=== PATIENT | male | born 1955 | race African-American/Black ===

== ENCOUNTER 2018-05-16 15:56 | Inpatient (IN) | payer OTHER ==
[~2018-05-16] VITALS: Ht 175.3 cm; Wt 80.7 kg
--- NOTE | ~2018-05-16 | HC ---
[facility] [address] [place] [address] CONSULTATION Name: OMAR INMAN Room #: [facility]- ADM IN M.R.#: [id number] Admission: 05/16/18 Attend Phys: Mark Hamilton MD Discharge: Date of : 55 Report #: [id number] THIS REPORT FOR: //name// CC: [employer] physician/PCP Mark Hamilton REASON FOR CONSULTATION: Chest pain. HISTORY OF PRESENT ILLNESS: The patient is a 62-year-old gentleman with history of dyslipidemia and hypertension. Around 3:30 today experienced midsternal chest and infrascapular pain, presented to the Emergency Department where an EKG at 1605 demonstrated inferior and lateral injury pattern. I was asked to see him in this regard. He has ongoing pain and mild diaphoresis. He denies prior cardiac history. He denies heart failure symptoms including orthopnea, paroxysmal nocturnal dyspnea, or lower extremity edema. No history of palpitations, near syncope, or syncope. ALLERGIES: He is allergic to STATINS which caused rhabdomyolysis and IODINATED CONTRAST which caused rash. MEDICATIONS: Home medicines include nifedipine, tamsulosin, niacin, omeprazole, methadone and allopurinol. PAST MEDICAL HISTORY: Medical records have been reviewed and include history of hypertension, osteoarthritis. 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 FAMILY HISTORY: Unremarkable for premature coronary disease. REVIEW OF SYSTEMS: All systems negative except as that noted above. PHYSICAL EXAMINATION: GENERAL: A pleasant gentleman in moderate distress. VITAL SIGNS: Blood pressure is 128/58, heart rate is 60 and regular. He is afebrile. HEENT: There are neither xanthelasma, subcutaneous xanthomata, oral mucosal or digital cyanosis or kyphoscoliosis present. CHEST: Clear to auscultation and percussion. CARDIAC: Regular rate and rhythm with normal S1 and distant heart sounds. ABDOMEN: Soft and nontender. EXTREMITIES: Without cyanosis, clubbing or edema. Radial pulses are 2+. NEUROLOGIC: He is alert with a nonfocal exam. LABORATORY DATA: EKG sinus rhythm with inferior posterior lateral injury pattern. Blood work remains pending. White count 11.3, hemoglobin 14, hematocrit 44, platelet count 239. Chest x-ray remains pending. [facility] [address] [place] [address] CONSULTATION Name: OMAR INMAN Room #: [facility]- ADM IN .Rosalie.#: [id number] Admission: 05/16/18 Attend Phys: Mark Hamilton MD Discharge: Date of : 55 Report #: [id number] IMPRESSION: 1. Acute inferolateral myocardial infarction. 2. Hypertension. 3. Dyslipidemia. 4. History of intolerance to statins. 5. IODINATED CONTRAST allergy. RECOMMENDATIONS: 1. Premedication for IODINE allergy. 2. Urgent coronary angiography. The angiographic procedure was discussed in detail. Potential risks and benefits discussed as well as the risks associated with probable percutaneous intervention. After a thorough discussion of the procedure, its risks and alternatives and after answering his questions, he is agreeable to proceeding. By: 1646 [id number] Constantine Quan MD, [facility] /nt
--- NOTE | ~2018-05-16 | EKG ---
[address] [address] ELECTROCARDIOGRAM REPORT Name: OMAR INMAN Room #: 212-P ADM IN M.R.#: [id number] Admission: 05/16/18 Attend Phys: Mark Hamilton MD Discharge: Date of : 55 Report #: [id number] THIS REPORT FOR: //name// [facility] ED Test Date: 2018-05-16 Test Time: 16:05:11 Pat Name: OMAR INMAN Department: Room: [facility] Gender: M Hospitality Associate: [facility] : 1955 Requested By: Diomedes Esqueda Order Number: [id number] MD: Philippe Vasquez Measurements Intervals [place] Rate: 61 P: -41 VT: 111 QRS: 71 QRSD: 89 T: 87 QT: 471 QTc: 475 Interpretive Statements Sinus rhythm Borderline short VT interval Inferoposterior infarct, acute (LCx) Lateral infarct, acute ST depression V1-V3, suggest recording posterior leads No previous ECG available for comparison Electronically Signed On 05-16-2018 20:53:49 PSYCHOLOGY PHYSICIAN by Philippe Vasquez [email or web address] <ELECTRONICALLY SIGNED> By: Philippe Vasquez MD 05/16/183 1605 Philippe Vasquez MD /EPI
--- NOTE | ~2018-05-16 | EKG ---
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1955 Requested By: Constantine Quan Order Number: [id number] MD: Constantine Quan Measurements Intervals [place] Rate: 59 P: 69 TN: 113 QRS: -35 QRSD: 102 T: -57 QT: 489 QTc: 485 Interpretive Statements Sinus rhythm Inferoposterior infarct, age indeterminate Lateral leads are also involved Baseline wander in lead(s) V2 Compared to ECG 05/17/2018 07:33:35 No significant changes Electronically Signed On 05-18-2018 9:24:06 EXPERT MEDICAL WRITER by Constantine Quan [email or web address] <ELECTRONICALLY SIGNED> By: Constantine Quan MD, [facility] 05/18/18 0924 0734 0734 Constantine Quan MD, [facility] /EPI
--- NOTE | ~2018-05-16 | EKG ---
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[employer] : 1955 Requested By: Constantine Quan Order Number: [id number] MD: Constantine Quan Measurements Intervals [place] Rate: 65 P: 73 SC: 118 QRS: -40 QRSD: 90 T: 82 QT: 478 QTc: 498 Interpretive Statements Sinus rhythm Borderline short SC interval Inferoposterior infarct, age indeterminate Compared to ECG 05/16/2018 18:27:07 No significant changes Electronically Signed On 05-17-2018 8:28:02 PAINTER AND DECORATOR APPRENTICE by Constantine Quan [email or web address] <ELECTRONICALLY SIGNED> By: Constantine Quan MD, [facility] 05/17/18 0828 Constantine Quan MD, [facility] /EPI
--- NOTE | ~2018-05-16 | CATHLAB ---
[facility] [address] [place] [address] INVASIVE PROCEDURE REPORT Name: OMAR INMAN Room #: 212-P ADM IN M.R.#: [id number] Admission: 05/16/18 Attend Phys: Mark Hamilton MD Discharge: Date of : 55 Date of Service: 05/16/18 1829 Report #: [id number] THIS REPORT FOR: //name// APPROVED REPORT Study performed: 05/16/2018 16:45:44 Patient Details Patient Status: ED Room #: The patient is a 62 year-old male Event Personnel Constantine Quan Spline Rolling Machine Job Setter, Champ Hurtado RN, Simon Linares RN RN, Jojo Ortiz, Alphonso Koo Monitor Procedures Performed Left Heart Cath w/or w/o Coronaries [id number] [facility] Revasc AMI Total/Sub Single CIRC C9606 AMIREVSING Indication STEMI (>0 to less than or equal to 6 hours), Chest pain Risk Factors Arterial Hypertension, Hypercholesterolemia Admission/Lab Medications/Medications given during procedure Aspirin, Glycoprotein IllbIlla Inhibitors, ACEI/ARB, Heparin Low Molecular Weight, Beta Onesimo Procedure Narrative The Right Groin^ was infiltrated with 1% Lidocaine subcutaneous anesthesia. A PINNACLE 6FR Sheath #[id number] sheath was inserted into the RFA^. Coronary angiography was performed using coronary diagnostic catheters. The right coronary system was accessed and visualized with a JR4 catheter. The left coronary system was accessed and visualized with a JL4 catheter. The left ventricle was accessed and visualized with a PIGTAIL catheter. Left ventricular/Aortic Valve gradient assessed via catheter pullback. Left ventriculogram was performed in 30 degree projection. Closure device was deployed with a 6 Fr MYNXGRIP 6/7F #[id number]. There was no hematoma. Intraoperative Conscious Sedation Sedation start time: 16.53 Case end Time: 17.39 [facility] [place] [address] INVASIVE PROCEDURE REPORT Name: OMAR INMAN Room #: 212-P [facility] IN .R.#: [id number] Admission: 05/16/18 Attend Phys: Mark Hamilton MD Discharge: Date of : 55 Date of Service: 05/16/18 1829 Report #: [id number] Fluoro Time: 12.46 minutes Dose: DAP 06166 cGycm2 1427 mGy Contrast Type and Amount: Visipaque 300 ml Coronary Angiography The patient's coronary anatomy is left dominant. Diagnostic Cath Left Main Left main was large and normal LAD The left anterior descending exhibited mild 20-30% proximal and mid vessel plaquing. Diagonal 1 The first diagonal branch was angiographically normal Diagonal 2 The second diagonal branch exhibited 20-30% proximal plaquing. Circumflex The circumflex was occluded proximally. This was the dominant vessel. Right Coronary The right coronary was moderate in size and nondominant R PDA The posterior descending branch was occluded proximally. There was fairly extensive jqnr-zn-egxat collateralization to the distal right coronary. Left Ventriculography The left ventricle is normal in size with abnormal contractility. The left ventricular ejection fraction is estimated to be 45%. Left ventricular wall motion abnormalities are present. There is no mitral insufficiency. Hypokinesis involving the base to mid portions of the inferior wall. Ejection fraction 45% Elevated left ventricular end-diastolic pressures Hemodynamics The aortic pressure is 153/67 mmHg with a mean of 60 mmHg. The left ventricular pressure is 137/18 mmHg with a mean of mmHg. The left ventricular end diastolic pressure is 37 mmHg. There was no gradient across the aortic valve upon pullback. Pullback from the left ventricle to the aorta revealed no gradient across the aortic valve. PCI Technique Lesion Anticoagulation was achieved with Heparin, Integrilin. Patient was preloaded with Brillinta. Percutaneous coronary intervention was performed on the proximal circumflex. The lesion stenosis prior to intervention was 100% with HANG 0 flow. A LAUNCHER 6FR EBU 3.5 #[id number] Guide Catheter was used to engage the left main [facility] [address] [place] [address] INVASIVE PROCEDURE REPORT Name: OMAR INMAN Room #: 212-P [facility] IN M.R.#: [id number] Admission: 05/16/18 Attend Phys: Mark Hamilton MD Discharge: Date of : 55 Date of Service: 05/16/18 1829 Report #: [id number] ostium. BALLOON DILATION A Balloon catheter Euphora RX 2.5 x 12 #[id number] was inserted and inflated up to 8atm for 24seconds. Repeat angiography revealed the following post-dilatation results: fairly long diffuse, severe residual stenosis. HANG III flow restored followinhg initial PTCA. Additional Inflation: 8atm for 21seconds. Additional Inflation: 12atm for 18seconds. 06/21 STENT DEPLOYMENT A drug-eluting stent XIENCE LENY RX 3.0 X 23 #[id number] was inserted and inflated up to 18atm for 30seconds. Repeat angiography revealed the following post-stent deployment results: 0% residual. POST STENT DEPLOYMENT BALLOON DILATION A Balloon catheter TREK NC OTW 3.25 X 12 #[id number] was inserted and inflated up to 12atm for 26seconds. Additional Inflation: 16atm for 29seconds. Additional Inflation: 14atm for 18seconds. Final angiography reveals 0 % stenosis with HANG 3 flow. COMMENTS Attempt to wire the posterior descending branch unsuccessful. This appeared to be a chronic occlusion, fairly extensive kytg-gw-rpist collateralization PCI Technique Lesion 2 Percutaneous Coronary Intervention was performed on the mid circumflex artery segment. Conclusion 1. Moderate left ventricular dysfunction with inferior hypokinesis. Ejection fraction 45% 2. Elevated left heart pressures 3. Normal left main 4. Mild plaquing of the LAD 5. Occlusion of a dominant circumflex stented with 3.0 x 23 Xience Leny medicated stent 6. Non-dominant Right coronary with chronically occluded, small PDA. Left to RCA collaterals Recommendations Smoking Cessation Cardiac Rehabilitation Referral [facility] [address] [place] [address] INVASIVE PROCEDURE REPORT Name: OMAR INMAN Room #: 212-P [facility] IN M.R.#: [id number] Admission: 05/16/18 Attend Phys: Mark Hamilton MD Discharge: Date of : 55 Date of Service: 05/16/181828 Report #: [id number] Aggressive Medical Therapy Medications Administered SAMANTHA Inhibitor (any) Aspirin (any) Beta Onesimo (any) Contraindicated: rhabdomyolysis with statins Ticagrelor Cardiac Rehabilitation Referral Smoking Cessation <ELECTRONICALLY SIGNED> By: Constantine Quan MD, FACC 05/16/181828 28 28 Constantine Quan MD, FACC /INF
--- NOTE | ~2018-05-16 | 2DMMODE ---
[facility] [address] [place] [address] 2 D/M-MODE ECHOCARDIOGRAM Name: OMAR INMAN Room #: 212-P ADM IN ..#: [id number] Admission: 05/16/18 Attend Phys: Mark Hamilton MD Discharge: Date of : 55 Date of Service: 05/17/18 1046 Report #: [id number] THIS REPORT FOR: //name// APPROVED REPORT Study performed: 05/17/2018 09:57:46 EXAM: Comprehensive 2D, Doppler, and color-flow Echocardiogram Patient Location: In-Patient Room #: [facility] Status: routine BSA: 1.97 HR: 71 bpm BP: 169/87 mmHg Other Information Study Quality: Good Indications Chest Pain Hypertension/HDD WV 2D Dimensions RVDd: 26.65 mm IVSd: 12.82 (7-11mm) LVOT Diam: 23.20 (18-24mm) LVDd: 48.96 mm PWd: 12.11 (7-11mm) Ascending Ao: 29.47 (22-36mm) LVDs: 33.90 (25-40mm) Aortic Root: 33.21 mm IVC: 23.00 mm Volumes Left Atrial Volume (Systole) Single Plane 4CH: 39.18 mL Single Plane 2CH: 63.06 mL LA ESV Index: 29.00 mL/m2 Aortic Valve AoV Peak Jae.: 1.64 m/s AO Peak Gr.: 10.80 mmHg LVOT Max P.39 mmHg LVOT Max V: 1.16 m/s GERMAIN Vmax: 2.99 cm2 Mitral Valve E/A Ratio: 1.2 MV Decel. Time: 182.81 ms [facility] [address] [place] [address] 2 D/M-MODE ECHOCARDIOGRAM Name: ROLLY INMANPRIMITIVO Room #: [facility] IN [facility].#: [id number] Admission: 05/16/18 Attend Phys: Mark Hamilton MD Discharge: Date of : 55 Date of Service: 05/17/18 1046 Report #: [id number] MV E Max Jae.: 1.03 m/s MV A Jae.: 0.84 m/s MV PHT: 53.02 ms IVRT: 117.65 ms Pulmonary Valve PV Peak Jae.: 1.17 m/s PV Peak Gr.: 5.51 mmHg Pulmonary Vein P Vein S: 0.68 m/s P Vein A: 0.27 m/s P Vein D: 0.25 m/s P Vein A Dur.: 73.8 msec P Vein S/D Ratio: 2.72 Tricuspid Valve TR Peak Jae.: 2.68 m/s RAP Estimate: 15.00 mmHg TR Peak Gr.: 28.76 mmHg PA Pressure: 44.00 mmHg Left Ventricle The left ventricle is normal size. Mild concentric left ventricular hypertrophy. Left ventricular systolic function is mildly decreased. Akinesis base of inferior wall, hypokinesis inferolateral wall LVEF 45%. Grade II - pseudonormal filling dynamics. Right Ventricle The right ventricle is normal size. The right ventricular systolic function is normal. Atria The left atrium size is normal. The right atrium size is normal. Aortic Valve Aortic valve is mildly sclerotic No aortic regurgitation is present. There is no aortic valvular stenosis. Mitral Valve Mild mitral annular calcification Moderate mitral regurgitation. No evidence of mitral valve stenosis. Tricuspid Valve The tricuspid valve is normal in structure. Mild tricuspid regurgitation. PAP is estimated at 44 mmHg. Pulmonic Valve The pulmonary valve is normal in structure. Trace pulmonic [address] [address] 2 D/M-MODE ECHOCARDIOGRAM Name: OMAR INMAN Room #: 212-P [facility] IN M.R.#: [id number] Admission: 05/16/18 Attend Phys: Mark Hamilton MD Discharge: Date of : 55 Date of Service: 05/17/18 1046 Report #: [id number] regurgitation. Great Vessels The aortic root is normal in size. IVC is dilated and collapses <50% with inspiration. Pericardium There is no pericardial effusion. <Conclusion> Left ventricular systolic function is mildly decreased. Akinesis base of inferior wall, hypokinesis inferolateral wall LVEF 45%. Grade II - pseudonormal filling dynamics. Aortic valve is mildly sclerotic. No aortic regurgitation or stenosis Mild mitral annular calcification. Moderate mitral regurgitation. Mild tricuspid regurgitation. Pulmonary artery pressure estimated at 44 mmHg. There is no pericardial effusion. <ELECTRONICALLY SIGNED> By: Constantine Quan MD, FACC 05/17/18 1046 1046 1046 Constantine Quan MD, FACC /INF
--- NOTE | ~2018-05-16 | EKG ---
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
[2018-05-16 15:59] VITALS: BP 129/58
[2018-05-16 16:28] LABS: HEMATOCRIT 44.2 % (42.0-52.0); HEMOGLOBIN 14.8 gm/dL (14.0-18.0); MCHC 33.6 g/dL (28.0-37.0); MCV 86.4 fL (80.0-100.0); PLATELET COUNT 239 thou/uL (150-400); RBC 5.11 mil/uL (4.50-6.00); RDW 14.8 % (10.5-14.5); WBC 11.3 thou/uL (4.0-11.0)
[2018-05-16 16:44] VITALS: BP 125/67
[2018-05-16 16:44] LABS: ANION GAP 16 mmol/L (7-16); BUN 15 mg/dL (7-18); CALCIUM 9.1 mg/dL (8.5-10.1); CHLORIDE 105 mmol/L (98-107); CO2 23 mmol/L (21-32); CREATININE 1.3 mg/dL (0.7-1.3); GLUCOSE 148 mg/dL (74-106); SODIUM 144 mmol/L (136-145)
[2018-05-16 16:47] LABS: POTASSIUM 2.2 mmol/L (3.5-5.1)
[2018-05-16 16:50] LABS: APTT 23.3 Seconds (24.5-32.8); INR 1.2; PROTIME 12.6 Seconds (9.3-11.4)
[2018-05-16 16:52] LABS: MAGNESIUM 1.9 mg/dL (1.8-2.4); SGOT 18 U/L (15-37); SGPT 24 U/L (30-65); TOTAL BILIRUBIN 0.3 mg/dL (<0.1-1.0); TROPONIN-I <0.06 ng/mL (<0.06)
[2018-05-16 17:12] LABS: ABSOLUTE NEUTROPHILS 4.9 thou/uL (1.4-8.2); ATYPICAL LYMPHS 19 %
[2018-05-16 18:17] VITALS: BP 146/79
[2018-05-16 23:42] VITALS: BP 148/90
[2018-05-16] MEDS ORDERED: FLOMAX0.4 MG PO (23:47)
[2018-05-16] MEDS ORDERED: NIFEDIPINE ER30 M1 PO (23:48)
[2018-05-16] MEDS ORDERED: OMEPRAZOLE 20 M20 M1 PO (23:48)
[2018-05-16] MEDS ORDERED: NIACIN 500 MG500 M1 PO (23:49)
[2018-05-16] MEDS ORDERED: METHADONE HCL5 MG PO (23:50)
[2018-05-16] MEDS ORDERED: TRAZODONE HCL100 MG PO (23:50)
[2018-05-16] MEDS ORDERED: AMBIEN 5 MG TABL5 M1 PO (23:51)
[2018-05-16] MEDS ORDERED: PAXIL10 MG PO (23:51)
[2018-05-17 03:11] LABS: AMP/METHAMP Negative (Negative); BARBITURATES Negative (Negative); BENZODIAZEPINES Negative (Negative); COCAINE Negative (Negative); METHADONE POSITIVE (Negative); OPIATES POSITIVE (Negative); PCP Negative (Negative)
[2018-05-17 04:06] VITALS: BP 160/89
[2018-05-17 04:07] LABS: HEMATOCRIT 44.4 % (42.0-52.0); HEMOGLOBIN 14.5 gm/dL (14.0-18.0); MCH 28.6 pg (26.0-34.0); MCHC 32.6 g/dL (28.0-37.0); MCV 87.7 fL (80.0-100.0); RBC 5.06 mil/uL (4.50-6.00); RDW 15.4 % (10.5-14.5); WBC 9.1 thou/uL (4.0-11.0)
[2018-05-17 04:27] LABS: CHOLESTEROL 259 mg/dL (<200); HDL CHOLESTEROL 55 mg/dL (>40); LDL CHOLESTEROL 193 mg/dL (<100); SERUM ASSESSMENT Clear; TC:HDL 4.7 Ratio (Not establshd); TRIGLYCERIDE 55 mg/dL (<150); VLDL 11 mg/dL (<40)
[2018-05-17 04:28] LABS: TROPONIN-I 104.32 ng/mL (<0.06)
[2018-05-17 07:58] VITALS: BP 169/87
[2018-05-17 08:11] LABS: CREATININE 1.3 mg/dL (0.7-1.3)
[2018-05-17 08:22] LABS: POTASSIUM 3.9 mmol/L (3.5-5.1)
[2018-05-17 09:18] LABS: POC ANION GAP Outside Report Range mmol/L (7-16); POC BUN 13 mg/dL (7-18); POC CA IONIZED 4.4 mg/dL (4.5-5.3); POC CHLORIDE 106 mmol/L (98-107); POC CREATININE 1.1 mg/dL (0.6-1.3); POC GLUCOSE 144 mg/dL (70-99); POC HEMOGLOBIN 15.3 g/dL (14.0-18.0); POC POTASSIUM < 2.5 mmol/L (3.5-5.1); POC SODIUM 145 mmol/L (136-145); POC TCO2 21 mmol/L (21-32)
[2018-05-17 15:08] VITALS: BP 147/80
[2018-05-17 19:40] VITALS: BP 179/95
[2018-05-18 00:06] LABS: GLYCOHEMOGLOBIN (HGB A1C) 5.9 % (4.8-5.6)
[2018-05-18 04:05] VITALS: BP 157/95
[2018-05-18 04:11] LABS: CALCIUM 9.1 mg/dL (8.5-10.1); CREATININE 1.4 mg/dL (0.7-1.3); POTASSIUM 3.8 mmol/L (3.5-5.1)
[2018-05-18 07:49] VITALS: BP 154/84
[2018-05-18] MEDS ORDERED: ASPIR 8181 MG PO (09:10)
[2018-05-18] MEDS ORDERED: ACETAMINOPHEN325 M1 PO (09:10)
[2018-05-18] MEDS ORDERED: ALLOPURINOL 30300 M1 PO (09:10)
[2018-05-18] MEDS ORDERED: COLACE 100 MG100 MG PO (09:10)
[2018-05-18] MEDS ORDERED: METOPROLOL SUCC50 MG PO (09:10)
[2018-05-18] MEDS ORDERED: ACCUPRIL40 MG PO (09:10)
[2018-05-18] MEDS ORDERED: BRILINTA90 MG PO (09:10)
[2018-05-18] MEDS ORDERED: CLOPIDOGREL75 MG PO (09:10)
[2018-05-18 10:23] VITALS: BP 154/84
[2018-05-18 10:42] VITALS: BP 120/93
== END 2018-05-18 11:00 | disposition home or self-care (01) | DRG 246 ==
LOC: ER 15:56 → EROBS 17:53 → 2N 17:53
PROVIDERS: Emergency Medicine; Internal Medicine
PROC: 4A023N7 Measurement of Cardiac Sampling and Pressure, Left Heart, Percutaneous Approach (ICD-10-PCS; principal; 2018-05-16)
PROC: B2151ZZ Fluoroscopy of Left Heart using Low Osmolar Contrast (ICD-10-PCS; principal; 2018-05-16)
PROC: 027034Z Dilation of Coronary Artery, One Artery with Drug-eluting Intraluminal Device, Percutaneous Approach (ICD-10-PCS; principal; 2018-05-16)
PROC: 02703ZZ Dilation of Coronary Artery, One Artery, Percutaneous Approach (ICD-10-PCS; principal; 2018-05-16)
PROC: B2111ZZ Fluoroscopy of Multiple Coronary Arteries using Low Osmolar Contrast (ICD-10-PCS; principal; 2018-05-16)
DX: I21.19 ST elevation (STEMI) myocardial infarction involving other coronary artery of inferior wall (principal); I50.21 Acute systolic (congestive) heart failure; E87.6 Hypokalemia; E78.00 Pure hypercholesterolemia, unspecified; M19.90 Unspecified osteoarthritis, unspecified site; I25.5 Ischemic cardiomyopathy; I10 Essential (primary) hypertension; I25.110 Atherosclerotic heart disease of native coronary artery with unstable angina pectoris; E74.39 Other disorders of intestinal carbohydrate absorption; N40.0 Benign prostatic hyperplasia without lower urinary tract symptoms; F17.210 Nicotine dependence, cigarettes, uncomplicated; G89.4 Chronic pain syndrome; Z79.899 Other long term (current) drug therapy; Z71.6 Tobacco abuse counseling; Z91.041 Radiographic dye allergy status; Z88.8 Allergy status to other drugs, medicaments and biological substances
CPT/HCPCS: 10081